=== PATIENT | male | born 1965 | race African-American/Black ===

== ENCOUNTER 2017-06-05 01:47 | Emergency (ER) | payer OTHER ==
[2017-06-05 02:14] VITALS: BP 123/66; PULSE 82; TEMP 98; BMI 29.9
[2017-06-05] MEDS ORDERED: KETOROLAC TROMETHAMINE 30 MG/1 ML VIAL IM ONE (02:18)
[2017-06-05] MEDS ORDERED: METHOCARBAMOL 500 MG TABLET PO ONE (02:18)
[2017-06-05] MEDS ORDERED: KETOROLAC TROMETHAMINE 30 MG/1 ML VIAL ONE (02:22)
[2017-06-05] MEDS ORDERED: METHOCARBAMOL 500 MG TABLET ONE (02:22)
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
--- NOTE | 2017-06-05 02:25 | PDOC ---
*Physical Exam - Vital Signs Last Vital Signs Temp Pulse Resp BP Pulse Ox 98.0 F 82 20 123/66 97 06/05/17 02:13 06/05/17 02:13 06/05/17 02:13 06/05/17 02:13 06/05/17 02:13 Medical Decision Making - Medical Decision Making 06/05/17 02:24 agree with care from HEEL LINING PASTER Richard
[2017-06-05 04:09] LABS: EOSINOPHIL 4.1 % (0-4.5); MCH 28.9 pg (25.7-33.7); MCHC 33.5 g/dl (32.0-35.9); MEAN CELL VOLUME 86.2 fl (80-96); MEAN PLT VOLUME 8.4 fl (7.5-11.1); NEUTROPHILS 38.5 % (42.8-82.8); PLATELET COUNT 219 K/MM3 (134-434); RDW 12.9 % (11.9-15.9); WHITE BLOOD COUNT 5.5 K/mm3 (4.0-10.0)
[2017-06-05 04:34] LABS: ALBUMIN 3.8 g/dl (3.4-5.0); ANION GAP 8 (8-16); BILIRUBIN,TOTAL 0.5 mg/dL (0.2-1.0); CALCIUM 8.4 mg/dL (8.5-10.1); CO2 30 mmol/L (21-32); CREATININE 1.2 mg/dL (0.7-1.3); GLUCOSE,RANDOM 81 mg/dL (74-106); SGPT/ALT 27 U/L (12-78); TOT PROT 7.6 g/dl (6.4-8.2)
[2017-06-05 04:35] LABS: ALK PHOS 51 U/L (45-117)
[2017-06-05 04:48] LABS: SGOT/AST 23 U/L (15-37)
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
== END 2017-06-05 06:56 | disposition home or self-care (01) ==
LOC: JER 01:47
DX: M54.2 Cervicalgia (principal); V79.49XA Driver of bus injured in collision with other motor vehicles in traffic accident, initial encounter; Y92.488 Other paved roadways as the place of occurrence of the external cause; Y93.89 Activity, other specified; Y99.8 Other external cause status
CPT/HCPCS: 36415; 70450-TC; 70460-TC; 70498-TC; 72125-TC; 80053; 85025; 99282-25

== ENCOUNTER 2018-10-05 21:53 | Emergency (ER) | payer OTHER ==
[2018-10-05 22:20] VITALS: BP 115/58; PULSE 57; TEMP 97.7; BMI 26.4
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
[2018-10-06] MEDS ORDERED: KETOROLAC TROMETHAMINE 30 MG/1 ML VIAL IM ONE (01:09)
[2018-10-06] MEDS ORDERED: diazePAM 5 MG TABLET PO ONE (01:09)
--- NOTE | 2018-10-06 01:46 | PDOC ---
*Physical Exam - Vital Signs Last Vital Signs Temp Pulse Resp BP Pulse Ox 97.7 F 57 L 18 115/58 L 100 10/05/18 21:53 10/05/18 21:53 10/05/18 21:53 10/05/18 21:53 10/05/18 21:53 ED Treatment Course - Medications Given in the ED: ED Medications Discontinued Medications Generic Name Dose Route Start Last Admin Trade Name Freq PRN Reason Stop Dose Admin Diazepam 5 mg 10/06/18 01:09 10/06/18 01:22 Valium - PO 10/06/18 01:10 Not Given ONCE ONE Ketorolac Tromethamine 30 mg 10/06/18 01:09 10/06/18 01:22 Toradol Injection - IM 10/06/18 01:10 Not Given ONCE ONE Medical Decision Making - Medical Decision Making 10/06/18 01:45 I agree with mid level provider's assessment and management of this case. *DC/Admit/Observation/Transfer Diagnosis at time of Disposition: Neck pain Head injury due to trauma Qualifiers: Encounter type: initial encounter Qualified Code(s): S09.90XA - Unspecified injury of head, initial encounter Right knee pain Qualifiers: Chronicity: acute Qualified Code(s): M25.561 - Pain in right knee - Discharge Dispostion Disposition: HOME Condition at time of disposition: Fair - Prescriptions Prescriptions: Cyclobenzaprine HCl [Flexeril -] 10 mg PO TID PRN #10 tablet PRN Reason: Muscle Spasms Ibuprofen 600 mg PO QID PRN #30 tablet PRN Reason: Pain - Referrals Referrals: Pedro Rojas MD [Staff Physician] - - Patient Instructions Printed Discharge Instructions: DI for Closed Head Injury Additional Instructions: rest and relax as much as possible. - Post Discharge Activity Forms/Work/School Notes: Back to Work
== END 2018-10-06 02:46 | disposition home or self-care (01) ==
LOC: JER 21:53
DX: M54.2 Cervicalgia (principal); M25.561 Pain in right knee; V43.52XA Car driver injured in collision with other type car in traffic accident, initial encounter; Y92.414 Local residential or business street as the place of occurrence of the external cause; Y93.89 Activity, other specified; Y99.8 Other external cause status; M48.00 Spinal stenosis, site unspecified
CPT/HCPCS: 70450-TC; 72125-TC; 72128-TC; 73562-TC-RT-FY; 99281-25; 99283-25